=== PATIENT | female | born 2000 | race Two or more races ===

== ENCOUNTER 2021-12-08 10:36 | Outpatient (REF) | payer OTHER, SELFPAY ==
[2021-12-08 18:07] LABS: CT PCR NOT DETECTED (Not Detect.); NG PCR NOT DETECTED (Not Detect.)
== END 2021-12-08 10:37 | disposition home or self-care (01) ==
LOC: HO.LAB 10:36
PROVIDERS: Visit Provider Advanced Practice Midwife
DX: Z01.419 Encounter for gynecological examination (general) (routine) without abnormal findings (principal); Z20.2 Contact with and (suspected) exposure to infections with a predominantly sexual mode of transmission
CPT/HCPCS: 87491; 87591; 88142

== ENCOUNTER 2022-07-07 09:07 | Outpatient (REF) | payer OTHER, SELFPAY ==
[2022-07-07 09:21] LABS: MANUAL DIFF FLAG NO
[2022-07-07 10:42] LABS: Basophils Absolute Auto 0.1 X10*3/uL (0.0-0.2); Basophils Percent Auto 1.2 % (0-2); Eosinophils Absolute Auto 0.3 X10*3/uL (0.0-0.4); Eosinophils Percent Auto 3.3 % (0-4); Hematocrit 38.8 % (37.0-47.0); Hemoglobin 12.8 g/dl (12.0-16.0); Imm Gran Abs Auto 0.02 X10*3/uL (0.00-0.03); Imm Gran Pct Auto 0.2 % (0.0-0.4); Lymphocytes Absolute Auto 2.1 X10*3/uL (1.2-4.9); Lymphocytes Percent Auto 25.3 % (20-40); Mean Corpuscular Hemoglobin 28.3 pg (27.0-33.0); Mean Corpuscular Volume 85.8 fL (80.0-98.0); Mean Platelet Volume 10.3 fL (9.4-12.3); Monocytes Absolute Auto 0.9 X10*3/uL (0.1-1.2); Monocytes Percent Auto 11.4 % (2-11); Neutrophils Absolute Auto 4.8 x10*3/uL (2.0-8.3); Neutrophils Percent Auto 58.6 % (45-73); Platelet Count 227 X10*3/uL (160-400); Red Blood Count 4.52 X10*6/uL (4.20-5.50); Red Cell Distribution Width 12.4 % (11.0-16.0); White Blood Count 8.2 X10*3/uL (4.8-10.8)
[2022-07-07 11:20] LABS: Alanine Aminotransferase 15 U/L (0-31); Albumin Level 4.4 g/dL (3.5-5.0); Alkaline Phosphatase 46 U/L (39-117); Anion Gap 14 (12-20); Aspartate Amino Transferase 19 U/L (5-31); Bilirubin Total 0.8 mg/dL (0.0-1.0); Blood Urea Nitrogen 10 mg/dL (9-16); Calcium 9.3 mg/dL (8.4-10.2); Carbon Dioxide 26 mmol/L (22-29); Chloride 106 mmol/L (96-108); Estimated Glomerular Filt Rate > 60; Glucose Random 74 mg/dL (60-115); Potassium 4.3 mmol/L (3.3-5.1); Sodium 142 mmol/L (135-145); Total Protein 7.4 g/dL (6.5-8.0)
[2022-07-07 11:38] LABS: TSH reflex Free T4 0.83 uIU/mL (0.32-4.0); Vitamin B12 716 pg/mL (200-900); Vitamin D 25-OH Total 25.6 ng/mL (>30)
[2022-07-07 13:00] LABS: Folate 14.5 ng/mL (> or = 4.0)
== END 2022-07-07 09:08 | disposition home or self-care (01) ==
LOC: HO.LAB 09:07
PROVIDERS: PCP Nurse Practitioner Family; Visit Provider Nurse Practitioner Family
DX: Z00.00 Encounter for general adult medical examination without abnormal findings (principal)
CPT/HCPCS: 36415; 80053; 82306; 82607; 82746; 84443; 85025

== ENCOUNTER 2022-10-19 15:27 | Outpatient (REF) | payer OTHER, SELFPAY ==
[2022-10-19 16:51] LABS: Vitamin D 25-OH Total 43.8 ng/mL (>30)
== END 2022-10-19 15:28 | disposition home or self-care (01) ==
LOC: HO.LAB 15:27
PROVIDERS: Visit Provider Nurse Practitioner Family
DX: R79.89 Other specified abnormal findings of blood chemistry (principal)
CPT/HCPCS: 36415; 82306

== ENCOUNTER 2023-01-10 09:20 | Outpatient (AMB) | payer OTHER, MEDICAID, SELFPAY ==
--- NOTE | 2023-01-10 09:31 | MHC.OFFVIS ---
Intake Vital Signs 01/10/23 09:33 Height 5 ft 6 in Weight 100 lb 2 oz BMI 16.2 BP 100/62 Intake Visit Reasons: ER follow up Intake Note: The patient agreed to use of a dental assistant medical assistant during this encounter. Scribed for FERNANDO Ruiz by Ade Hurtado dental assistant medical assistant, on 01/10/2023 at 9:48 am EST. 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 Reports pain is not worsening and only hurts when she cough or lift something heavy. Currently sexually active. Does not use BC and does not mind getting . STD testing offered; she declines due to having her menses. [facility] Medical History Encounter to establish care (~07/05/21) History of anxiety Hx of migraine headaches Irregular menses Ovarian cyst Surgical History History of facial surgery History of hernia surgery History of nasal surgery History of wisdom tooth extraction Family History Mother Hernia Father High blood pressure Kidney stone Maternal Grandmother Diabetes mellitus Paternal Grandmother Diabetes mellitus Social History Housing: Apartment Alcohol intake: current Alcohol intake frequency: a few times a month Patient Tobacco Use Status: Never used Tobacco e-Cigarette/Vaping Use: Never Used Second Hand Smoke Exposure: No Substance Use Type: Marijuana Patient : No service: No Current occupational status: employed 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 Sexual orientation: Straight/Heterosexual Gender identity: Female Cognitive needs: No Hearing needs: No Vision needs: Yes (glasses) Female Reproductive History Menstrual Age of Menarche: 13 Duration of menses: 6-7 days Date of last menstrual period: 01/07/23 control method: none Total pregnancies: 0 Number of Living Children: 0 Physical Exam Vital Signs: Last Vital Signs BP 100/62 01/10/23 09:33 BMI result Body Mass Index 16.2 Const General: cooperative, healthy appearing, comfortable, no acute distress, well developed, alert and awake Other: General: Yes bladder normal to palpation External Female Exam: normal external appearance and normal appearance of the urethra Speculum Exam - Vagina: normal appearance of the vagina, normal palpation and normal vaginal discharge Speculum Exam - Cervix: normal appearance of the cervix and normal palpation Bimanual exam- vagina & uterus: normal bimanual exam, normal palpation, bladder normal to palpation and normal palpation Bimanual Exam- Adnexa, other: normal adnexae and no masses Assessment & Plan Assessment & Plan (1) Ovarian cyst: Code(s): N83.209 - Unspecified ovarian cyst, unspecified side Plan: Discussed: Pelvic US ordered; follow up for test results with AG in January. Call sooner if pain increases or go to the ED if pain is severe. All of her questions and concerns were addressed to the best of my ability and shared decision making. She is agreeable to plan of care. AG scheduled. Orders: Orders US pelvic and transvaginal Today N83.209 - Unspecified ovarian cyst, unspecified side Coding Level of Care Code Est Pt Level 3 (30495) Diagnoses Ovarian cyst N83.209
[2023-01-10 09:33] VITALS: BP 100/62; BMI 16.2
== END 2023-01-10 10:21 | disposition home or self-care (01) ==
LOC: HO.HWS 09:20
PROVIDERS: PCP Nurse Practitioner Family; Visit Provider Advanced Practice Midwife
DX: N83.209 Unspecified ovarian cyst, unspecified side (principal)
CPT/HCPCS: 99213

== ENCOUNTER → 2023-01-10 09:20 | Outpatient (BNVA) | payer OTHER, MEDICAID, SELFPAY | PROVIDERS: PCP Nurse Practitioner Family; Visit Provider Advanced Practice Midwife ==

== ENCOUNTER 2023-01-12 14:13 | Outpatient (REF) | payer OTHER, MEDICAID, SELFPAY ==
--- NOTE | ~2023-01-12 | US_ITS ---
EXAMINATION: US PELVIS CLINICAL INFORMATION: Ovarian cyst, last menstrual period 01/07/2023. COMPARISON: None available. TECHNIQUE: Ultrasound of the pelvis is performed using both transabdominal and transvaginal transducers along with Doppler. Transvaginal imaging is performed due to inadequate visualization transabdominally. FINDINGS: Uterus is anteverted and measures 6.6 x 2.8 x 4.7 cm. No discrete fibroids are identified. Endometrial thickness is 0.4 cm. Small anechoic area within the endometrium, possibly representing a cyst versus fluid collection. Patients is currently menstruating. No significant free fluid. Right ovary measures 5.6 x 1.4 x 2.7 cm, volume 7.2 mL. Right ovarian 1.6 x 0.7 x 1.1 cm cyst with septation versus 2 follicles. Left ovary measures 3.9 x 1.3 x 1.7 cm, volume 4.5 mL. Left ovarian 1.0 x 0.8 x 0.9 cm cyst, characteristic of follicle. No significant free fluid. US/US pelvic and transvaginal IMPRESSION: Small anechoic area within the endometrium, possibly representing a cyst versus fluid collection. Patients is currently menstruating. Correlation with clinical exam and possible gynecologic consultation recommended to determine further management. Recommend followup ultrasound in 6-8 weeks.
== END 2023-01-12 14:14 | disposition home or self-care (01) ==
LOC: HO.HMGCX 14:13
PROVIDERS: PCP Nurse Practitioner Family; Visit Provider Advanced Practice Midwife
DX: N83.209 Unspecified ovarian cyst, unspecified side (principal)
CPT/HCPCS: 76830; 76856

== ENCOUNTER 2023-02-08 13:53 | Outpatient (AMB) | payer OTHER, SELFPAY ==
--- NOTE | 2023-02-08 14:04 | A.OFFVIS_ITS ---
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 Scribed for FERNANDO Ruiz by Ade Hurtado medical dermatologist, on 02/08/2023 at 2:14 pm EST. Healthcare Facility Administrator: Healthcare Facility Administrator Present ([place]) Allergies No Known Allergies Allergy (Verified 02/08/23 14:04) Is last menstrual period known: Yes Last menstrual period: 12/07/22 HPI HPI Comments History of Present Illness Details She is a premenopausal woman presenting for annual exam. She admits to eating healthy and tries to stay active with exercise. Currently sexually active. Doesn't use any form of BC and her and her partner are trying to conceive. Reports both her and her partner seen fertility specialist at [facility], was told her eggs are tiny, she received Rx/treatment and stopped taking treatment due to no positive results and at the time living with in laws and needed to take a break. PNV Rx offered; she defers and prefers to buy OTC as they cost less. Regular monthly periods. Reports right sided pelvic pain. Denies vaginal itching and irritation. STD screening offered; she accepts. Denies family hx of breast, colon and ovarian cancer. Last pap smear 12/09/21. Reports she was having her menses during her last US. [facility] Medical History Cyst of uterus Abnormal ultrasound Female infertility Pelvic pain Ovarian cyst Irregular menses History of anxiety Hx of migraine headaches Encounter to establish care (~07/05/21) Surgical History History of wisdom tooth extraction History of hernia surgery History of nasal surgery History of facial surgery Family History Mother Hernia Father High blood pressure Kidney stone Maternal Grandmother Diabetes mellitus Paternal Grandmother Diabetes mellitus Social History Housing: Apartment Alcohol intake: current Alcohol intake frequency: a few times a month Patient Tobacco Use Status: Never used Tobacco e-Cigarette/Vaping Use: Never Used Second Hand Smoke Exposure: No Substance Use Type: Marijuana service: No Current occupational status: employed 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 Sexual orientation: Straight/Heterosexual Gender identity: Female Cognitive needs: No Hearing needs: No Vision needs: Yes (glasses) Female Reproductive History Menstrual Age of Menarche: 13 Date of last menstrual period: 12/07/22 control method: none Total pregnancies: 0 Physical Exam Vital Signs: Last Vital Signs BP 90/56 L 02/08/23 14:06 BMI result Body Mass Index 16.0 Const General: cooperative, healthy appearing, no acute distress, well developed and alert Orientation/consciousness: patient oriented x3 HEENT Head: Yes normal to inspection Eyes General: appearance normal, both eyes and all related structures Neck Neck: Yes normal visual inspection Thyroid: Thyroid normal Chest Chest palpation & inspection: normal inspection of the chest Breast/axilla inspection: normal inspection of the breasts (no puckering, dimpling, peau de orange, retraction, discharge, masses) Breast/axilla palpation: normal palpation of the breasts Resp Effort & Inspection: normal respiratory effort GI Inspection: Yes normal to inspection Palpation (GI): Soft to palpation (to palpation) Rectal Exam - Female: deferred General: Yes bladder normal to inspection External Female Exam: normal external appearance and normal appearance of the urethra Speculum Exam - Vagina: normal appearance of the vagina, normal palpation and normal vaginal discharge Speculum Exam - Cervix: normal appearance of the cervix and normal palpation Bimanual exam- vagina & uterus: normal palpation and normal palpation Bimanual Exam- Adnexa, other: normal adnexae and no masses Skin General skin exam: no rashes or lesions noted Neuro General: patient oriented x3 Cognition (Neuro): normal cognition Extrem General: Yes normal to inspection Psych Attitude: cooperative Thought process: Normal thought process present Results AMB Test Urine AMB Test Urine Negative Last Edit by ROME Torres on 02/08/23 14:14 Results Reviewed Results Reviewed: Laboratory Last Values Tst Clinic Negative 02/08/23 14:13 01/12/23 EXAMINATION: US PELVIS CLINICAL INFORMATION: Ovarian cyst, last menstrual period 01/07/2023. COMPARISON: None available. TECHNIQUE: Ultrasound of the pelvis is performed using both transabdominal and transvaginal transducers along with Doppler. Transvaginal imaging is performed due to inadequate visualization transabdominally. FINDINGS: Uterus is anteverted and measures 6.6 x 2.8 x 4.7 cm. No discrete fibroids are identified. Endometrial thickness is 0.4 cm. Small anechoic area within the endometrium, possibly representing a cyst versus fluid collection. Patients is currently menstruating. No significant free fluid. Right ovary measures 5.6 x 1.4 x 2.7 cm, volume 7.2 mL. Right ovarian 1.6 x 0.7 x 1.1 cm cyst with septation versus 2 follicles. Left ovary measures 3.9 x 1.3 x 1.7 cm, volume 4.5 mL. Left ovarian 1.0 x 0.8 x 0.9 cm cyst, characteristic of follicle. No significant free fluid. US/US pelvic and transvaginal IMPRESSION: Small anechoic area within the endometrium, possibly representing a cyst versus fluid collection. Patients is currently menstruating. Correlation with clinical exam and possible gynecologic consultation recommended to determine further management. Recommend followup ultrasound in 6-8 weeks. Assessment & Plan Assessment & Plan (1) Encounter for well woman exam: Code(s): Z01.419 - Encounter for gynecological examination (general) (routine) without abnormal findings Plan: Discussed: Current recommendations for pap smears per ASCCP guidelines. Breast awareness and periodic self breast exams. Maintaining a healthy lifestyle including a well balanced diet and routine exercise. All of her questions and concerns were addressed to the best of my ability. RTO in one year for AG. (2) Ovarian cyst: Code(s): N83.209 - Unspecified ovarian cyst, unspecified side (3) Pelvic pain: Code(s): R10.2 - Pelvic and perineal pain Plan: Pelvic US ordered. Follow up via tele-visit for results. Monitor periods, report any unscheduled bleeding, bleeding episodes less than 21 days apart or heavy prolonged menstrual bleeding. BV testing and GC/CT panel done today. Await results and treat accordingly. (4) Female infertility: Code(s): N97.9 - Female infertility, unspecified Plan: Contact office if interested in referral to fertility specialist when ready. (5) Uterine cyst: Code(s): N85.8 - Other specified noninflammatory disorders of uterus (6) Abnormal ultrasound: Code(s): R93.89 - Abnormal findings on diagnostic imaging of other specified body structures Orders: Orders CT NG by PCR Today Z20.2 - Contact with and (suspected) exposure to infections with a predominantly sexual mode of transmission AMB HCG Urine Test Today Z32.02 - Encounter for test, result negative US pelvic and transvaginal Today N85.8 - Other specified noninflammatory disorders of uterus Coding Level of Care Code Est Pt Prev Care 18-39y(84834) Diagnoses Encounter for well woman exam Z01.419 Ovarian cyst N83.209 Pelvic pain R10.2 Female infertility N97.9 Uterine cyst N85.8 Abnormal ultrasound R93.89
[2023-02-08 14:06] VITALS: BP 90/56; BMI 16.0
== END 2023-02-08 14:32 | disposition home or self-care (01) ==
PROVIDERS: PCP Nurse Practitioner Family; Visit Provider Advanced Practice Midwife
DX: Z01.419 Encounter for gynecological examination (general) (routine) without abnormal findings (principal); N83.209 Unspecified ovarian cyst, unspecified side; R10.2 Pelvic and perineal pain; N97.9 Female infertility, unspecified; N85.8 Other specified noninflammatory disorders of uterus; R93.89 Abnormal findings on diagnostic imaging of other specified body structures; Z32.02 Encounter for pregnancy test, result negative
CPT/HCPCS: 99395

== ENCOUNTER 2023-02-08 13:53 | Outpatient (REF) | payer OTHER, SELFPAY ==
[2023-02-09 09:52] LABS: CT PCR NOT DETECTED (Not Detect.); NG PCR NOT DETECTED (Not Detect.)
== END 2023-02-08 13:54 | disposition home or self-care (01) ==
LOC: HO.LNP 13:53
PROVIDERS: PCP Nurse Practitioner Family; Visit Provider Advanced Practice Midwife
DX: Z01.419 Encounter for gynecological examination (general) (routine) without abnormal findings (principal); N83.209 Unspecified ovarian cyst, unspecified side; R10.2 Pelvic and perineal pain; N97.9 Female infertility, unspecified; N85.8 Other specified noninflammatory disorders of uterus; R93.89 Abnormal findings on diagnostic imaging of other specified body structures; Z20.2 Contact with and (suspected) exposure to infections with a predominantly sexual mode of transmission
CPT/HCPCS: 0353U; 81025

== ENCOUNTER 2023-02-28 10:48 | Outpatient (REF) | payer OTHER, SELFPAY | END 2023-02-28 10:49 | disposition home or self-care (01) | LOC: HO.US 10:48 | PROVIDERS: PCP Nurse Practitioner Family; Visit Provider Advanced Practice Midwife | DX: N85.8 Other specified noninflammatory disorders of uterus (principal) | CPT/HCPCS: 76830; 76856 ==

== ENCOUNTER 2023-03-14 12:12 | Outpatient (AMB) | payer OTHER, SELFPAY ==
--- NOTE | 2023-03-14 12:13 | MHC.OFFVIS ---
Intake Intake Visit Reasons: TV Ultra sound follow up Intake Note: The patient agreed to use of a medical services assistant during this encounter. Scribed for FERNANDO Ruiz by Ade Hurtado medical services assistant, on 03/14/2023 at 12:56 pm EST. Commercial Lines Account Manager Required: No Allergies No Known Allergies Allergy (Verified 03/14/23 12:13) Is last menstrual period known: Yes Last menstrual period: 02/13/23 Post menopausal: No Patient : No HPI HPI Comments History of Present Illness Details Telehealth visit 12:56 pm -1:0 pm. Phone Call due to Covid-19 Pandemic. She presents via phone to discuss US results regarding: Small anechoic area within the endometrium, possibly representing a cyst versus fluid collection. Patients is currently menstruating. Reports LMP was 02/22/23 and is waiting for her menses for this month but is experiencing symptoms. Currently sexually active; UPI. Feels well, not having any pain. Reports they are not trying but they are not preventing. Reports her and her partner has seen infertility specialist, used Clomid, was told her eggs are small. She took a break from infertility assistance emotionally difficult to continue. FOR[facility]LY [facility] Medical History (Updated 03/14/23 @ 13:05 by Ade Hurtado) Nabothian cyst Cyst of uterus Abnormal ultrasound Female infertility Pelvic pain Ovarian cyst Irregular menses History of anxiety Hx of migraine headaches Encounter to establish care (~07/05/21) Surgical History History of wisdom tooth extraction History of hernia surgery History of nasal surgery History of facial surgery Family History Mother Hernia Father High blood pressure Kidney stone Maternal Grandmother Diabetes mellitus Paternal Grandmother Diabetes mellitus Social History Housing: Apartment Alcohol intake: current Alcohol intake frequency: a few times a month Patient Tobacco Use Status: Never used Tobacco e-Cigarette/Vaping Use: Never Used Second Hand Smoke Exposure: No Substance Use Type: Marijuana Patient : No service: No Current occupational status: employed 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 COMPARISON: Pelvic ultrasound dated 01/12/2023. TECHNIQUE: Ultrasound of the pelvis is performed using both transabdominal and transvaginal transducers along with Doppler. Transvaginal imaging is performed due to inadequate visualization transabdominally. FINDINGS: Uterus: The uterus is anteverted and anteflexed. The uterus measures 6.6 x 2.8 x 4.5 cm. A Nabothian cyst is seen within the cervix. The double wall endometrial thickness is 0.7 mm. The uterus is smooth in contour and has normal myometrial echogenicity. No visible fibroid. Adnexa: Both ovaries are visualized. There is normal color flow to the adnexa. There is no ovarian torsion. There is no pelvic ascites or fluid collection. Right ovary measures 3.7 x 1.6 x 2.0 cm. There are small benign, simple physiologic follicles. Left ovary measures 4.1 x 2.2 x 1.7 cm. A benign, simple, dominant follicle is seen of maximal diameter 1.7 cm. This requires no imaging follow-up. There are further smaller benign, simple physiologic follicles. US/US pelvic and transvaginal IMPRESSION: 1. The previously identified endometrial fluid collection is not clearly redemonstrated. Endometrial stripe thickness is normal for a premenopausal patient. 2. A nabothian cyst is seen within the cervix. 3. There are benign, simple bilateral ovarian follicles, which require no imaging follow-up. Assessment & Plan Assessment & Plan (1) Encounter to discuss test results: Code(s): Z71.2 - Person consulting for explanation of examination or test findings Plan: Discussed: US findings: 1. The previously identified endometrial fluid collection is not clearly redemonstrated. Endometrial stripe thickness is normal for a premenopausal patient. 2. A nabothian cyst is seen within the cervix. 3. There are benign, simple bilateral ovarian follicles, which require no imaging follow-up. Monitor menses. If experience pain or prolonged menses, cycles <21d, >2-3months contact office. All of her questions and concerns were addressed to the best of my ability and shared decision making. She is agreeable to plan of care. RTO for AG. (2) Female infertility: Code(s): N97.9 - Female infertility, unspecified Plan: Release of records from ED specialist at [facility]. (3) Nabothian cyst: Code(s): N88.8 - Other specified noninflammatory disorders of cervix uteri Telehealth Telehealth Location of provider rendering services: practice address Location of patient: other (work) Patient Identification confirmed using: Name, : Yes Telehealth method: video Patient verbally consented to treatment: Yes Patient verbally consented to billing insurance company: Yes Patient informed of any privacy concerns related to visit: Yes Coding Level of Care Code Tele Est Pt Level 3 (46886) Diagnoses Encounter to discuss test results Z71.2 Female infertility N97.9 Nabothian cyst N88.8
== END 2023-03-14 13:22 | disposition home or self-care (01) ==
LOC: HO.HWS 12:12
PROVIDERS: PCP Nurse Practitioner Family; Visit Provider Advanced Practice Midwife
DX: Z71.2 Person consulting for explanation of examination or test findings (principal); N97.9 Female infertility, unspecified; N88.8 Other specified noninflammatory disorders of cervix uteri
CPT/HCPCS: 99213

== ENCOUNTER → 2023-03-14 12:12 | Outpatient (BNVA) | payer OTHER, SELFPAY | PROVIDERS: PCP Nurse Practitioner Family; Visit Provider Advanced Practice Midwife ==

== ENCOUNTER 2023-03-27 10:02 | Outpatient (REF) | payer OTHER, SELFPAY ==
[2023-03-27 13:54] LABS: HCG Quantitative 639 mIU/mL
== END 2023-03-27 10:03 | disposition home or self-care (01) ==
LOC: HO.HMGCLDS 10:02
PROVIDERS: PCP Nurse Practitioner Family; Visit Provider Physician Assistant Medical
DX: Z34.90 Encounter for supervision of normal pregnancy, unspecified, unspecified trimester (principal)
CPT/HCPCS: 36415; 84702

== ENCOUNTER 2023-09-26 15:04 | Outpatient (REF) | payer BC, SELFPAY | END 2023-09-26 15:05 | disposition home or self-care (01) | LOC: HO.LAB 15:04 | PROVIDERS: PCP Internal Medicine; Visit Provider Advanced Practice Midwife | DX: N93.9 Abnormal uterine and vaginal bleeding, unspecified (principal); Z32.02 Encounter for pregnancy test, result negative | CPT/HCPCS: 81025 ==

== ENCOUNTER 2023-09-26 15:04 | Outpatient (AMB) | payer BC, SELFPAY ==
--- NOTE | 2023-09-26 15:44 | A.OFFVIS_ITS ---
Vital Signs 09/26/23 15:46 Height 5 ft 6 in BP 110/70 Intake Visit Reasons: AUB Intake Note: pt c/o bleeding 2x month since miscarriage in Mar Dipper And Baker: Dipper And Baker Present ([place]) Allergies No Known Allergies Allergy (Verified 09/26/23 15:44) Is last menstrual period known: Yes (spotting 09/20 to 09/24) Last menstrual period: 09/05/23 HPI Comments Details: Patient is here with concerns over her menstrual cycle pattern bleeding on and off every couple of weeks for 5 months. She has had a few ultrasounds in 2022, one appeared as if it may have been questionable polyp and then the subsequent follow-up did not reveal any abnormal findings, and then she was which ended in a miscarriage in March new partner since April, she currently is open to becoming and prefers not to be on control. Unprotected intimacy on 09/16/2023. Urine test is negative today. [facility] Medical History Nabothian cyst Cyst of uterus Abnormal ultrasound Female infertility Pelvic pain Ovarian cyst Irregular menses History of anxiety Hx of migraine headaches Encounter to establish care (~07/05/21) Surgical History History of wisdom tooth extraction History of hernia surgery History of nasal surgery History of facial surgery Family History Mother Hernia Father High blood pressure Kidney stone Maternal Grandmother Diabetes mellitus Paternal Grandmother Diabetes mellitus Social History Housing: Apartment Alcohol intake: current Alcohol intake frequency: a few times a month Patient Tobacco Use Status: Never used Tobacco e-Cigarette/Vaping Use: Never Used Second Hand Smoke Exposure: No Substance Use Type: Marijuana service: No Current occupational status: employed 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 Sexual orientation: Straight/Heterosexual Gender identity: Female Cognitive needs: No Hearing needs: No Vision needs: Yes (glasses) Female Reproductive History Menstrual Age of Menarche: 13 Duration of menses: 3-5 days Date of last menstrual period: 09/05/23 Total pregnancies: 1 Ab spontaneous: 1 Review of Systems Const All systems reviewed & are unremarkable except as noted in HPI and below Physical Exam Vital Signs: Last Vital Signs BP 110/70 09/26/23 15:46 Const General: cooperative, healthy appearing and no acute distress Orientation/consciousness: patient oriented x3 GI Inspection: Yes normal to inspection Palpation (GI): Soft to palpation and Other GI palpation findings present (Nontender) Rectal Exam - Female: visual inspection normal General: Yes bladder normal to palpation External Female Exam: normal appearance of the urethra Speculum Exam - Vagina: normal appearance of the vagina, normal palpation and normal vaginal discharge Speculum Exam - Cervix: normal appearance of the cervix, normal palpation and Other cervical findings present (Hyperpigmented patch at the 6 o'clock position) Bimanual exam- vagina & uterus: normal bimanual exam, normal palpation, uterine size normal, bladder normal to palpation, normal palpation, uterine shape normal and non-tender Bimanual Exam- Adnexa, other: normal adnexae Neuro General: patient oriented x3 Results AMB Test Urine AMB Test Urine Negative Last Edit by ROME Torres on 06/20 15:51 Results Reviewed Results Reviewed: Laboratory Last Values Tst Clinic Negative 09/26/23 15:50 Assessment & Plan Assessment & Plan (1) Abnormal uterine bleeding (AUB): Code(s): N93.9 - Abnormal uterine and vaginal bleeding, unspecified Plan Discuss workup for abnormal uterine bleeding to include EMB in ECC. Lab work. Discussed pre-procedure medication such as ibuprofen 3 tablets to take with food and fluids. Advised no unprotected intimacy and to use condoms consistently. test is negative today. Pap screen done today, and cervical cultures. Return to the office for the procedure. All of her questions and concerns were addressed to the best of my ability and shared decision making. She is agreeable to the plan of care. This note is constructed using voice recognition software. While every effort has been made to ensure accuracy, data base administrator errors may have been included. Orders: Orders Testosterone, Free/Total Today N93.9 - Abnormal uterine and vaginal bleeding, unspecified Complete Blood Count no Diff Today N93.9 - Abnormal uterine and vaginal bleeding, unspecified Bacterial Vaginosis Panel Today N93.9 - Abnormal uterine and vaginal bleeding, unspecified CT NG by PCR Today N93.9 - Abnormal uterine and vaginal bleeding, unspecified Pap Smear Today N93.9 - Abnormal uterine and vaginal bleeding, unspecified AMB HCG Urine Test Today Z32.02 - Encounter for test, result negative Coding Level of Care Code Est Pt Level 4 (36207) Diagnoses Abnormal uterine bleeding (AUB) N93.9
[2023-09-26 15:46] VITALS: BP 110/70
== END 2023-09-26 16:10 | disposition home or self-care (01) ==
PROVIDERS: PCP Internal Medicine; Visit Provider Advanced Practice Midwife
DX: Z32.02 Encounter for pregnancy test, result negative (principal); N93.9 Abnormal uterine and vaginal bleeding, unspecified
CPT/HCPCS: 99214

== ENCOUNTER 2023-09-26 16:04 | Outpatient (REF) | payer BC, SELFPAY | END 2023-09-26 16:05 | disposition home or self-care (01) | LOC: HO.LNP 16:04 | PROVIDERS: Visit Provider Advanced Practice Midwife | DX: N93.9 Abnormal uterine and vaginal bleeding, unspecified (principal) | CPT/HCPCS: 88142 ==

== ENCOUNTER 2023-09-26 16:15 | Outpatient (REF) | payer BC, SELFPAY ==
[2023-09-26 17:29] LABS: Hematocrit 39.6 % (37.0-47.0); Hemoglobin 13.1 g/dl (12.0-16.0); Mean Corpuscular HGB Conc 33.1 g/dl (31.0-35.0); Mean Corpuscular Hemoglobin 27.7 pg (27.0-33.0); Mean Corpuscular Volume 83.7 fL (80.0-98.0); Platelet Count 235 X10*3/uL (160-400); Red Blood Count 4.73 X10*6/uL (4.20-5.50); Red Cell Distribution Width 12.7 % (11.0-16.0); White Blood Count 8.3 X10*3/uL (4.8-10.8)
[2023-09-26 18:29] LABS: CT PCR NOT DETECTED (Not Detect.); NG PCR NOT DETECTED (Not Detect.)
[2023-09-27 13:16] LABS: BV Int Neg Control Negative (Negative); BV Int Pos Control Positive (Positive)
[2023-09-30 17:29] LABS: Testosterone, Free 3.2 pg/mL (0.1-6.4); Testosterone, Total 18 ng/dL (2-45)
== END 2023-09-26 16:16 | disposition home or self-care (01) ==
LOC: HO.LAB 16:15
PROVIDERS: Visit Provider Advanced Practice Midwife
DX: N93.9 Abnormal uterine and vaginal bleeding, unspecified (principal)
CPT/HCPCS: 0353U; 84402; 84403; 85027; 87480; 87510; 87660

== ENCOUNTER 2023-10-17 11:28 | Outpatient (AMB) | payer BC, SELFPAY ==
--- NOTE | 2023-10-17 11:33 | MHC.PC.OV ---
Vital Signs 10/17/23 11:35 Height 5 ft 6 in Weight 116 lb 2 oz BMI 18.7 BP 130/70 Blood Pressure Location Lt brachial Position Sitting Pulse 82 Pulse Source Pulse Oximeter Pulse Oximetry (%) 97 Oxygen Delivery Method Room Air Intake Visit Reasons: Transfer of care/PE Intake Note: Patient is here today for a physical and SALLIE from . 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: No News Content Specialist: Not Required per policy Accompanied by: Self / Same As Patient Allergies No Known Allergies Allergy (Verified 10/30/23 16:04) Medication List - Last Reconciled 10/17/23 by Jorge Luis Velasco MD meloxicam 15 mg PO DAILY pantoprazole 40 mg PO DAILY Tobacco use date assessed: 10/17/23 Dental Screening Dental Screen Date: 10/17/23 Did you have a dental visit in the last 12 months?: Yes Did you have a dental problem in the last 6 months where you did not have access to dental care?: No Was dental information given to patient?: Patient has dentist HPI Transfer of care/PE HPI Details 22-year-old female presents to the office to discuss her medical conditions. I am taking over her care as her previous provider has left the practice. Patient has history of migraines and was on preventive medication for many years. She stopped taking the medication few years ago. Patient reports that she has been having migraines, at least 3 to 4 times a week. No specific triggers. Headaches are relieved by sitting in a dark room or by sleeping. [id number] nonsteroidals help. Patient is also complaining of reflux disease. Continues to burp and passed gas. Occasionally she has bitter+ fluid coming into the mouth. FORMERLY [facility], [facility]1983 Medical History Nabothian cyst Cyst of uterus Abnormal ultrasound Female infertility Pelvic pain Ovarian cyst Irregular menses History of anxiety Hx of migraine headaches Encounter to establish care (~07/05/21) Surgical History History of wisdom tooth extraction History of hernia surgery History of nasal surgery History of facial surgery Family History Mother Hernia Father High blood pressure Kidney stone Maternal Grandmother Diabetes mellitus Paternal Grandmother Diabetes mellitus Social History Housing: Apartment Alcohol intake: current Alcohol intake frequency: a few times a month Patient Tobacco Use Status: Never used Tobacco e-Cigarette/Vaping Use: Never Used Second Hand Smoke Exposure: No Substance Use Type: Marijuana service: No Current occupational status: employed 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 1. Little interest or pleasure in doing things: not at all 2. Feeling down, depressed, or hopeless: not at all 3. Trouble falling or staying asleep, or sleeping too much: not at all 4. Feeling tired or having little energy: not at all 5. Poor appetite or overeating: not at all 6. Feeling bad about yourself - or that you are a failure or have let yourself or your family down: not at all 7. Trouble concentrating on things, such as reading the newspaper or watching television: not at all 8. Moving or speaking so slowly that other people could have noticed. Or the opposite - being so fidgety or restless that you have been moving around a lot more than usual: not at all 9. Thoughts that you would be better off or of hurting yourself in some way: not at all Total score: 0 Depression Screening Interpretation: Negative Depression Screening Done: Yes Source: Developed by Drs. Saran Pepper, Karuna Vogel, Mitchell Obrien and colleagues, with an educational mirela from [employer]. Thrive Questionnaire Date Thrive assessed: 10/17/23 I am a: Patient What is your living situation today?: I have a steady place to live Within the past 12 months, did the food you bought not last and you didn't have the money to get more?: Never true Within the past 12 months, did you worry whether your food would run out before you got money to buy more?: Never true Do you have trouble paying for medicines?: No Do you have trouble getting transportation to medical appointments?: No Do you have trouble paying your heating and electricity bill?: No Do you have trouble taking care of your child, family member or friend?: No Do you have trouble with day-to-day activities such as bathing, preparing meals, shopping, managing finances, etc.?: No Are you currently unemployed and looking for a job?: No Are you interested in more education?: No Currently or been in a relationship where the following occur: no concerns reported THRIVE Score: 0 AUDIT C Alcohol Use Questionnaire (AUDIT-C) 1. How often do you have a drink containing alcohol?: Monthly or less 2. How many drinks containing alcohol do you have on a typical day when you are drinking?: 1 or 2 Total Score: 1 BI-7 AMB Questionnaire BI-7 Date BI - 7 assessed: 10/17/23 Feeling nervous, anxious, or on edge: 3 = Nearly every day Not being able to stop or control worryin = Nearly every day Worrying too much about different things: 3 = Nearly every day Trouble relaxin = Nearly every day Being so restless that it is hard to sit still: 3 = Nearly every day Becoming easily annoyed or irritable: 3 = Nearly every day Feeling afraid as if something awful might happen: 3 = Nearly every day Total BI-7 score (0-4 normal; 5-9 mild; 10-14 moderate; 15-21 severe): 21 Source: Developed by Drs. Saran Pepper, Karuna Vogel, Mitchell Obrien and colleagues, with an educational mirela from [employer]. Physical exam (Primary Care) Vital Signs: Last Vital Signs Pulse 82 10/17/23 11:35 BP 130/70 10/17/23 11:35 Pulse Ox 97 10/17/23 11:35 Oxygen Delivery Method Room Air 10/17/23 11:35 BMI result Body Mass Index 18.7 Tobacco/Smoking Status: Tobacco use Status Tobacco use date assessed 10/17/23 10/17/23 11:40 Patient Tobacco Use Status Never used Tobacco 10/17/23 11:40 e-Cigarette/Vaping Use Never Used 10/17/23 11:40 PHQ-9: PHQ-9 Score PHQ-9: Total score 0 10/17/23 12:14 Depression Screening Interpretation: Negative Thrive Assessment: Date of Thrive Assessment Date Thrive assessed 10/17/23 10/17/23 11:40 Currently or been in a relationship where the following occur: no concerns reported Const General: cooperative and healthy appearing Nutritional Appearance: well nourished Orientation/consciousness: patient oriented x3 Limitations: no limitations HENMT Head: Yes normal to inspection Eyes General: appearance normal, both eyes and all related structures Neck Neck: Yes normal visual inspection Chest Chest palpation & inspection: normal palpation of entire chest wall Resp Effort & Inspection: normal respiratory effort Neuro General: patient oriented x3 Assessment and Plan Assessment & Plan (1) Anxiety: Code(s): F41.9 - Anxiety disorder, unspecified (2) Migraine without aura: Code(s): G43.009 - Migraine without aura, not intractable, without status migrainosus Plan: Intermittent use of meloxicam. Ppi ordered. Orders: Orders Basic Metabolic Panel 10/17/23 F41.9 - Anxiety disorder, unspecified, G43.009 - Migraine without aura, not intractable, without status migrainosus Thyroid Stimulating Hormone 10/17/23 F41.9 - Anxiety disorder, unspecified, G43.009 - Migraine without aura, not intractable, without status migrainosus UA and rflx microscopic 10/17/23 F41.9 - Anxiety disorder, unspecified, G43.009 - Migraine without aura, not intractable, without status migrainosus Lipid Panel 10/17/23 F41.9 - Anxiety disorder, unspecified, G43.009 - Migraine without aura, not intractable, without status migrainosus Liver Panel 10/17/23 F41.9 - Anxiety disorder, unspecified, G43.009 - Migraine without aura, not intractable, without status migrainosus Complete Blood Count no Diff 10/17/23 F41.9 - Anxiety disorder, unspecified, G43.009 - Migraine without aura, not intractable, without status migrainosus Medications: New pantoprazole 40 mg PO DAILY 90 tabs 1RF meloxicam 15 mg PO DAILY 14 tabs 0RF Coding Level of Care Code Est Pt Level 4 (63332) Diagnoses Anxiety F41.9 Migraine without aura G43.009
[2023-10-17 11:35] VITALS: BP 130/70; PULSE 82; O2SAT 97; BMI 18.7
== END 2023-10-17 12:04 | disposition home or self-care (01) ==
PROVIDERS: PCP Nurse Practitioner Family; Visit Provider Internal Medicine
DX: F41.9 Anxiety disorder, unspecified (principal); G43.009 Migraine without aura, not intractable, without status migrainosus
CPT/HCPCS: 99214

== ENCOUNTER 2023-10-17 12:10 | Outpatient (REF) | payer BC, SELFPAY ==
[2023-10-17 12:33] LABS: Appearance Urine Clear; Color Urine Yellow; Glucose Urine UA Negative (Negative); Leukocyte Esterase Urine Negative (Negative); Nitrite Urine Negative (Negative); PH 5.5 (5.0-9.0); Specific Gravity - Urine 1.025 (1.005-1.025); Urine Blood Negative (Negative); Urine Ketones Negative (Negative); Urine Protein Negative (Neg-Trace)
[2023-10-17 12:33] LABS: Hematocrit 38.6 % (37.0-47.0); Hemoglobin 12.9 g/dl (12.0-16.0); Mean Corpuscular HGB Conc 33.4 g/dl (31.0-35.0); Mean Corpuscular Volume 83.9 fL (80.0-98.0); Mean Platelet Volume 9.7 fL (9.4-12.3); Platelet Count 233 X10*3/uL (160-400); Red Cell Distribution Width 12.6 % (11.0-16.0); White Blood Count 6.9 X10*3/uL (4.8-10.8)
[2023-10-17 13:08] LABS: Alanine Aminotransferase 14 U/L (0-31); Albumin Level 4.2 g/dL (3.5-5.0); Alkaline Phosphatase 47 U/L (39-117); Anion Gap 11 (12-20); Aspartate Amino Transferase 17 U/L (5-31); Bilirubin Direct 0.2 mg/dL (0.0-0.5); Bilirubin Total 0.7 mg/dL (0.0-1.0); Blood Urea Nitrogen 17 mg/dL (9-16); Carbon Dioxide 26 mmol/L (22-29); Chloride 107 mmol/L (96-108); Cholesterol 147 mg/dL (<200); Estimated Glomerular Filt Rate > 60; Glucose Random 86 mg/dL (60-115); HDL Cholesterol 52 mg/dL (>40); LDL Cholesterol Calculated 79 mg/dL (<100); Potassium 4.1 mmol/L (3.3-5.1); Sodium 140 mmol/L (135-145); Total Protein 7.1 g/dL (6.5-8.0); Triglycerides 83 mg/dL (<150)
[2023-10-17 13:24] LABS: Thyroid Stimulating Hormone 1.35 uIU/mL (0.32-4.0)
== END 2023-10-17 12:11 | disposition home or self-care (01) ==
LOC: HO.LAB 12:10
PROVIDERS: PCP Internal Medicine; Visit Provider Internal Medicine
DX: F41.9 Anxiety disorder, unspecified (principal); G43.009 Migraine without aura, not intractable, without status migrainosus
CPT/HCPCS: 36415; 80048; 80061; 80076; 81003; 84443; 85027

== ENCOUNTER 2023-10-30 08:33 | Outpatient (REF) | payer BC, SELFPAY ==
[2023-10-30 11:48] LABS: HCG Quantitative < 2 mIU/mL
== END 2023-10-30 08:34 | disposition home or self-care (01) ==
LOC: HO.LAB 08:33
PROVIDERS: PCP Internal Medicine; Visit Provider Advanced Practice Midwife
DX: N93.9 Abnormal uterine and vaginal bleeding, unspecified (principal); L70.9 Acne, unspecified; N92.6 Irregular menstruation, unspecified; Z32.02 Encounter for pregnancy test, result negative
CPT/HCPCS: 36415; 81025; 83498; 84702

== ENCOUNTER 2023-10-30 08:33 | Outpatient (AMB) | payer BC, SELFPAY ==
--- NOTE | 2023-10-30 08:51 | A.OFFVIS_ITS ---
Vital Signs 10/30/23 08:52 Height 5 ft 6 in Weight 118 lb BMI 19.0 BP 100/64 Intake Visit Reasons: EMB Window Cutter Required: No Information Interpreted: non-clinical & clinical Turret Lathe Operator: Turret Lathe Operator Present (Cesar) Allergies No Known Allergies Allergy (Verified 10/30/23 08:53) Is last menstrual period known: Yes Last menstrual period: 10/25/23 Post menopausal: No Patient : No HPI Comments Details: Patient is here today for a follow up on her AUB. She reports she is continuing to have irregular bleeding and had a recent faint home test. History of facial acne and irregular cycles. She was hoping for a future . Denies any risk to see PEs other than history of migraines with aura. COUNTS INCLUDE 234 BEDS AT THE [facility] Medical History Nabothian cyst Cyst of uterus Abnormal ultrasound Female infertility Pelvic pain Ovarian cyst Irregular menses History of anxiety Hx of migraine headaches Encounter to establish care (~07/05/21) Surgical History History of wisdom tooth extraction History of hernia surgery History of nasal surgery History of facial surgery Family History Mother Hernia Father High blood pressure Kidney stone Maternal Grandmother Diabetes mellitus Paternal Grandmother Diabetes mellitus Social History Housing: Apartment Alcohol intake: current Alcohol intake frequency: a few times a month Patient Tobacco Use Status: Never used Tobacco e-Cigarette/Vaping Use: Never Used Second Hand Smoke Exposure: No Substance Use Type: Marijuana service: No Current occupational status: employed 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 Sexual orientation: Straight/Heterosexual Gender identity: Female Cognitive needs: No Hearing needs: No Vision needs: Yes (glasses) Female Reproductive History Menstrual Age of Menarche: 13 Date of last menstrual period: 10/25/23 control method: none Date of last pap smear: 10/01/23 (negative) Review of Systems Const All systems reviewed & are unremarkable except as noted in HPI and below Endo Reports no additional complaints Physical Exam Vital Signs: Last Vital Signs BP 100/64 10/30/23 08:52 BMI result Body Mass Index 19.0 Const General: cooperative, healthy appearing and no acute distress Psych Appearance: well kempt Attitude: cooperative Thought process: Normal thought process present Results AMB Test Urine AMB Test Urine Negative Last Edit by ROME Anderson on 10/30/23 08:54 Results Reviewed Results Reviewed: Laboratory Last Values [facility]st Clinic Negative 10/30/23 08:54 Assessment & Plan Assessment & Plan (1) Abnormal uterine bleeding: Code(s): N93.9 - Abnormal uterine and vaginal bleeding, unspecified Plan Plan beta HCG, 17 hydroxy progesterone. Await HCG results before initiating control Rx to pharmacy. Counseled regarding starting progesterone only pills due to migraines with aura. control hormone use warnings: go to ER if and loss of vision, blindness, severe headache, chest pain or difficulty breathing, severe abdominal pain, or any pain or swelling in an extremity. Follow up pending test results for plan of care. Continuous progesterone or intermittent use trial. All of her questions and concerns were addressed to the best of my ability and shared decision making. She is agreeable to the plan of care. This note is constructed using voice recognition software. While every effort has been made to ensure accuracy, furniture upholstery mechanic errors may have been included. Orders: Orders HCG Quantitative Today N93.9 - Abnormal uterine and vaginal bleeding, unspecified AMB HCG Urine Test Today Z32.02 - Encounter for test, result negative 17 Hydroxyprogesterone Today L70.9 - Acne, unspecified, N92.6 - Irregular menstruation, unspecified Medications: New norethindrone (contraceptive) (Aditi) 0.35 mg PO DAILY 90 days 90 tabs 0RF Coding Level of Care Code Est Pt Level 3 (46550) Diagnoses Abnormal uterine bleeding N93.9
[2023-10-30 08:52] VITALS: BP 100/64; BMI 19.0
== END 2023-10-30 09:21 | disposition home or self-care (01) ==
LOC: HO.HWS 08:33
PROVIDERS: PCP Internal Medicine; Visit Provider Advanced Practice Midwife
DX: N93.9 Abnormal uterine and vaginal bleeding, unspecified (principal); Z32.02 Encounter for pregnancy test, result negative
CPT/HCPCS: 99213

== ENCOUNTER 2023-12-12 11:01 | Outpatient (AMB) | payer BC, SELFPAY ==
--- NOTE | 2023-12-12 11:19 | MHC.PC.OV ---
Vital Signs 12/12/23 11:21 Height 5 ft 6 in Weight 115 lb 8 oz BMI 18.6 BP 110/70 Blood Pressure Location Lt brachial Position Sitting Pulse 82 Pulse Source Pulse Oximeter Pulse Oximetry (%) 95 Oxygen Delivery Method Room Air Intake Visit Reasons: 6wks f\u Intake Note: Patient is here to follow up on Anxiety, Migraines. 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: Not Required per policy Accompanied by: Self / Same As Patient Allergies No Known Allergies Allergy (Verified 12/12/23 12:54) Medication List - Last Reconciled 12/12/23 by Jorge Luis Velasco MD norethindrone (contraceptive) (Aditi) 0.35 mg PO DAILY 90 days pantoprazole 40 mg PO DAILY sumatriptan succinate take 1 tab at onset of headache; if no relief may repeat 1 tab after at least 2 hrs; max = 4 tabs/24 hr PO Tobacco use date assessed: 12/12/23 Dental Screening Dental Screen Date: 10/17/23 HPI 6wks f\u HPI Details 23-year-old female returns to the office for a follow-up on her migraine headaches. Patient reports that the meloxicam prescribed in the last office visit has not help much with her headaches. Patient still gets 1-2 episodes of migraines in a week. 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 Pantoprazole has been working well for her GI symptoms. She is compliant with the other medications. [facility] Medical History Nabothian cyst Cyst of uterus Abnormal ultrasound Female infertility Pelvic pain Ovarian cyst Irregular menses History of anxiety Hx of migraine headaches Encounter to establish care (~07/05/21) Surgical History History of wisdom tooth extraction History of hernia surgery History of nasal surgery History of facial surgery Family History Mother Hernia Father High blood pressure Kidney stone Maternal Grandmother Diabetes mellitus Paternal Grandmother Diabetes mellitus Social History Housing: Apartment Alcohol intake: current Alcohol intake frequency: a few times a month Patient Tobacco Use Status: Never used Tobacco e-Cigarette/Vaping Use: Never Used Second Hand Smoke Exposure: No Substance Use Type: Marijuana service: No Current occupational status: employed Current occupation: [employer] Sexual orientation: Straight/Heterosexual Gender identity: Female Cognitive needs: No Hearing needs: No Vision needs: Yes (glasses) Female Reproductive History Menstrual Age of Menarche: 13 Questionnaire Thrive Questionnaire Date Thrive assessed: 10/17/23 BI-7 AMB Questionnaire BI-7 Date BI - 7 assessed: 10/17/23 Feeling nervous, anxious, or on edge: 3 = Nearly every day Not being able to stop or control worryin = Nearly every day Worrying too much about different things: 3 = Nearly every day Trouble relaxin = Nearly every day Being so restless that it is hard to sit still: 3 = Nearly every day Becoming easily annoyed or irritable: 3 = Nearly every day Feeling afraid as if something awful might happen: 3 = Nearly every day Total BI-7 score (0-4 normal; 5-9 mild; 10-14 moderate; 15-21 severe): 21 Source: Developed by Drs. Saran Pepper, Karuna Vogel, Mitchell Obrien and colleagues, with an educational mirela from [employer]. Physical exam (Primary Care) Vital Signs: Last Vital Signs Pulse 82 12/12/23 11:21 BP 110/70 12/12/23 11:21 Pulse Ox 95 12/12/23 11:21 Oxygen Delivery Method Room Air 12/12/23 11:21 BMI result Body Mass Index 18.6 Tobacco/Smoking Status: Tobacco use Status Tobacco use date assessed 12/12/23 12/12/23 11:31 Patient Tobacco Use Status Never used Tobacco 12/12/23 11:20 e-Cigarette/Vaping Use Never Used 12/12/23 11:20 Thrive Assessment: Date of Thrive Assessment Date Thrive assessed 10/17/23 12/12/23 11:20 Const General: cooperative and healthy appearing Nutritional Appearance: well nourished Orientation/consciousness: patient oriented x3 Limitations: no limitations HENMT Head: Yes normal to inspection Eyes General: appearance normal, both eyes and all related structures Neck Neck: Yes normal visual inspection Chest Chest palpation & inspection: normal palpation of entire chest wall Resp Effort & Inspection: normal respiratory effort Neuro General: patient oriented x3 Assessment and Plan Assessment & Plan (1) Migraine without aura: Code(s): G43.009 - Migraine without aura, not intractable, without status migrainosus Plan: Meloxicam has been discontinued. Sumatriptan has been added to the regimen. If patient continues to have frequent migraines requiring more than 15 pills of sumatriptan a month, I would begin prophylaxis for the prevention of migraine. Medications: New sumatriptan succinate take 1 tab at onset of headache; if no relief may repeat 1 tab after at least 2 hrs; max = 4 tabs/24 hr PO 14 tabs 0RF Discontinued meloxicam Discontinued Reason: Doctor's Order 15 mg PO DAILY 14 tabs 0RF Coding Level of Care Code Est Pt Level 4 (23458) Complex EM visit Add On G2211 Diagnoses Migraine without aura G43.009
[2023-12-12 11:21] VITALS: BP 110/70; PULSE 82; O2SAT 95; BMI 18.6
== END 2023-12-12 12:02 | disposition home or self-care (01) ==
PROVIDERS: PCP Internal Medicine; Visit Provider Internal Medicine
DX: G43.009 Migraine without aura, not intractable, without status migrainosus (principal)
CPT/HCPCS: 99214

== ENCOUNTER 2024-01-15 07:50 | Outpatient (REF) | payer BC, SELFPAY ==
[2024-01-15 16:35] LABS: Bacterial Vaginosis PCR POSITIVE (Negative); Candida Group PCR NOT DETECTED (Not Detect); Candida glab krusei PCR NOT DETECTED (Not Detect); Trichomonas vaginalis PCR NOT DETECTED (Not Detect)
[2024-01-15 17:00] LABS: CT PCR NOT DETECTED (Not Detect.); NG PCR NOT DETECTED (Not Detect.)
== END 2024-01-15 07:51 | disposition home or self-care (01) ==
LOC: HO.LAB 07:50
PROVIDERS: PCP Internal Medicine; Visit Provider Advanced Practice Midwife
DX: Z30.41 Encounter for surveillance of contraceptive pills (principal); N94.10 Unspecified dyspareunia; Z20.2 Contact with and (suspected) exposure to infections with a predominantly sexual mode of transmission
CPT/HCPCS: 0352U; 81025; 87491; 87591

== ENCOUNTER 2024-01-15 07:50 | Outpatient (AMB) | payer BC, SELFPAY ==
[2024-01-15 07:53] VITALS: BP 90/64; BMI 18.7
--- NOTE | 2024-01-15 07:53 | MHC.OFFVIS ---
Vital Signs 01/15/24 07:53 Height 5 ft 6 in Weight 116 lb BMI 18.7 BP 90/64 Intake Visit Reasons: pill check Allergies No Known Allergies Allergy (Verified 01/15/24 07:53) Is last menstrual period known: Yes Last menstrual period: 01/15/24 HPI Comments Details: Patient is here today for a pill check, she reports taking the pill within an hour range. Admits to having some unscheduled spotting for 2 days last month and has started to notice over the last 3 months that she is having pain with intimacy just before and after her cycle. She reports checking her cervix to see if it is tender before she commits to having intimacy. She denies any abnormal discharge or urinary symptoms. History of nausea, takes pantoprazole for her GI upset. She did a home test recently and reports it was negative. History of infertility in [facility]. Currently started her cycle today. FORMERLY [facility] Medical History Nabothian cyst Cyst of uterus Abnormal ultrasound Female infertility Pelvic pain Ovarian cyst Irregular menses History of anxiety Hx of migraine headaches Encounter to establish care (~07/05/21) Surgical History History of wisdom tooth extraction History of hernia surgery History of nasal surgery History of facial surgery Family History Mother Hernia Father High blood pressure Kidney stone Maternal Grandmother Diabetes mellitus Paternal Grandmother Diabetes mellitus Social History Housing: Apartment Alcohol intake: current Alcohol intake frequency: a few times a month Patient Tobacco Use Status: Never used Tobacco e-Cigarette/Vaping Use: Never Used Second Hand Smoke Exposure: No Substance Use Type: Marijuana service: No Current occupational status: employed 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 Sexual orientation: Straight/Heterosexual Gender identity: Female Cognitive needs: No Hearing needs: No Vision needs: Yes (glasses) Female Reproductive History Menstrual Age of Menarche: 13 Date of last menstrual period: 01/15/24 Review of Systems Const All systems reviewed & are unremarkable except as noted in HPI and below Physical Exam Vital Signs: Last Vital Signs BP 90/64 01/15/24 07:53 BMI result Body Mass Index 18.7 Const General: cooperative, healthy appearing and no acute distress Orientation/consciousness: patient oriented x3 GI Inspection: Yes normal to inspection Palpation (GI): Soft to palpation and Other GI palpation findings present (Nontender) Rectal Exam - Female: visual inspection normal General: Yes bladder normal to palpation External Female Exam: normal appearance of the urethra Speculum Exam - Vagina: normal appearance of the vagina, normal palpation, normal vaginal discharge and vaginal bleeding Speculum Exam - Cervix: normal appearance of the cervix and normal palpation Bimanual exam- vagina & uterus: normal bimanual exam, normal palpation, uterine size normal, bladder normal to palpation, normal palpation, uterine shape normal and non-tender Bimanual Exam- Adnexa, other: normal adnexae OB/external & speculum: vaginal bleeding Neuro General: patient oriented x3 Results AMB Test Urine AMB Test Urine Negative Last Edit by ROME Torres on 01/15/24 08:16 Results Reviewed Results Reviewed: Laboratory Last Values [facility]st Clinic Negative 01/15/24 08:15 Assessment & Plan Assessment & Plan (1) Oral contraceptive pill surveillance: Code(s): Z30.41 - Encounter for surveillance of contraceptive pills (2) Dyspareunia in female: Code(s): N94.10 - Unspecified dyspareunia Plan Discussed: Plan cultures GC chlamydia and BV panel. UPT is negative. Advised not to finger clean as she is prone to BV and to consider probiotic use to help restore vaginal silva. Discussed common causes of pelvic pain, may consider endometriosis, would need further evaluation to confirm, treatment presumptively unless planning future will discuss options further at her next follow up. Return to the office in 3 months will complete annual at that visit, report any increase in pain or other concerns sooner. Take control same time a day. If any missed or late pills use of a backup method is required. Refills sent in to pharmacy. All of her questions and concerns were addressed to the best of my ability and shared decision making. She is agreeable to the plan of care. This note is constructed using voice recognition software. While every effort has been made to ensure accuracy, transportation engineering technician errors may have been included. Orders: Orders AMB HCG Urine Test Today N94.10 - Unspecified dyspareunia Bacterial Vaginosis Panel Today N94.10 - Unspecified dyspareunia CT NG by PCR Today N94.10 - Unspecified dyspareunia Coding Level of Care Code Est Pt Level 3 (33607) Diagnoses Oral contraceptive pill surveillance Z30.41 Dyspareunia in female N94.10
== END 2024-01-15 08:28 | disposition home or self-care (01) ==
PROVIDERS: PCP Internal Medicine; Visit Provider Advanced Practice Midwife
DX: Z30.41 Encounter for surveillance of contraceptive pills (principal); N94.10 Unspecified dyspareunia
CPT/HCPCS: 99213

== ENCOUNTER 2024-01-15 08:15 | Outpatient (REF) | payer BC, SELFPAY | END 2024-01-15 08:16 | disposition home or self-care (01) | LOC: HO.LNP 08:15 | PROVIDERS: Visit Provider Advanced Practice Midwife | DX: Z13.89 Encounter for screening for other disorder (principal) ==

== ENCOUNTER 2024-01-23 08:32 | Outpatient (AMB) | payer BC, SELFPAY ==
[2024-01-23 08:47] VITALS: BP 96/78; PULSE 56; O2SAT 99; BMI 18.4
--- NOTE | 2024-01-23 08:47 | MHC.PC.OV ---
Vital Signs 01/23/24 08:47 Height 5 ft 6 in Weight 114 lb 4 oz BMI 18.4 BP 96/78 Blood Pressure Location Lt brachial Position Sitting Pulse 56 Pulse Source Pulse Oximeter Pulse Oximetry (%) 99 Oxygen Delivery Method Room Air Intake Visit Reasons: 1mth f/u Prior Authorization Technician Required: No Accompanied by: Self / Same As Patient Allergies No Known Allergies Allergy (Verified 01/23/24 09:45) Medication List - Last Reconciled 01/23/24 by Jorge Luis Velasco MD metronidazole 500 mg PO BID 7 days norethindrone (contraceptive) (Aditi) 0.35 mg PO DAILY 90 days pantoprazole 40 mg PO DAILY sumatriptan succinate take 1 tab at onset of headache; if no relief may repeat 1 tab after at least 2 hrs; max = 4 tabs/24 hr PO Tobacco use date assessed: 01/23/24 Dental Screening Dental Screen Date: 01/23/24 Did you have a dental visit in the last 12 months?: Yes Did you have a dental problem in the last 6 months where you did not have access to dental care?: No Was dental information given to patient?: Patient has dentist HPI 1mth f/u HPI Details 23-year-old female returns for a one-month follow-up. Sumatriptan has been helping her. She has to take 2 pills per migraine episode. She gets 1 episode a week. She is able to distinguish normal headaches from migraine headaches. Tolerating the pantoprazole and the vitamins. Patient has been on metronidazole for a vaginal infection. [facility] Medical History (Updated 01/23/24 @ 09:49 by Jorge Luis Velasco MD) Migraine headache with aura Nabothian cyst Cyst of uterus Abnormal ultrasound Female infertility Pelvic pain Ovarian cyst Irregular menses History of anxiety Encounter to establish care (~07/05/21) Surgical History History of wisdom tooth extraction History of hernia surgery History of nasal surgery History of facial surgery Family History Mother Hernia Father High blood pressure Kidney stone Maternal Grandmother Diabetes mellitus Paternal Grandmother Diabetes mellitus Social History (Reviewed 01/15/24 @ 08:34 by JACQUE Ruiz Housing: Apartment Alcohol intake: current Alcohol intake frequency: a few times a month Patient Tobacco Use Status: Never used Tobacco e-Cigarette/Vaping Use: Never Used Second Hand Smoke Exposure: No Substance Use Type: Marijuana service: No Current occupational status: employed 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 1. Little interest or pleasure in doing things: not at all 2. Feeling down, depressed, or hopeless: not at all 3. Trouble falling or staying asleep, or sleeping too much: not at all 4. Feeling tired or having little energy: not at all 5. Poor appetite or overeating: not at all 6. Feeling bad about yourself - or that you are a failure or have let yourself or your family down: not at all 7. Trouble concentrating on things, such as reading the newspaper or watching television: not at all 8. Moving or speaking so slowly that other people could have noticed. Or the opposite - being so fidgety or restless that you have been moving around a lot more than usual: not at all 9. Thoughts that you would be better off or of hurting yourself in some way: not at all Total score: 0 Depression Screening Interpretation: Negative Depression Screening Done: Yes Source: Developed by Drs. Saran Pepper, Karuna Vogel, Mitchell Obrien and colleagues, with an educational mirela from [employer]. Thrive Questionnaire Date Thrive assessed: 01/23/24 I am a: Patient What is your living situation today?: I have a steady place to live Within the past 12 months, did the food you bought not last and you didn't have the money to get more?: Never true Within the past 12 months, did you worry whether your food would run out before you got money to buy more?: Never true Do you have trouble paying for medicines?: No Do you have trouble getting transportation to medical appointments?: No Do you have trouble paying your heating and electricity bill?: No Do you have trouble taking care of your child, family member or friend?: No Do you have trouble with day-to-day activities such as bathing, preparing meals, shopping, managing finances, etc.?: No Are you currently unemployed and looking for a job?: No Are you interested in more education?: No Please select the resources that you would like help with: None Currently or been in a relationship where the following occur: No concerns reported THRIVE Score: 0 AUDIT C Alcohol Use Questionnaire (AUDIT-C) 1. How often do you have a drink containing alcohol?: Monthly or less 2. How many drinks containing alcohol do you have on a typical day when you are drinking?: 1 or 2 Total Score: 1 BI-7 AMB Questionnaire BI-7 Date BI - 7 assessed: 01/23/24 Feeling nervous, anxious, or on edge: 3 = Nearly every day Not being able to stop or control worryin = Nearly every day Worrying too much about different things: 3 = Nearly every day Trouble relaxin = Nearly every day Being so restless that it is hard to sit still: 3 = Nearly every day Becoming easily annoyed or irritable: 3 = Nearly every day Feeling afraid as if something awful might happen: 3 = Nearly every day Total BI-7 score (0-4 normal; 5-9 mild; 10-14 moderate; 15-21 severe): 21 Source: Developed by Drs. Saran Pepper, Karuna Vogel, Mitchell Obrien and colleagues, with an educational mirela from [employer]. Physical exam (Primary Care) Vital Signs: Last Vital Signs Pulse 56 01/23/24 08:47 BP 96/78 01/23/24 08:47 Pulse Ox 99 01/23/24 08:47 Oxygen Delivery Method Room Air 01/23/24 08:47 BMI result Body Mass Index 18.4 Tobacco/Smoking Status: Tobacco use Status Tobacco use date assessed 01/23/24 01/23/24 08:50 Patient Tobacco Use Status Never used Tobacco 01/23/24 08:50 e-Cigarette/Vaping Use Never Used 01/23/24 08:50 PHQ-9: PHQ-9 Score PHQ-9: Total score 0 01/23/24 08:50 Depression Screening Interpretation: Negative Thrive Assessment: Date of Thrive Assessment Date Thrive assessed 01/23/24 01/23/24 08:50 Currently or been in a relationship where the following occur: No concerns reported Const Other: Blood pressure, temperature and heart rate reviewed. Assessment and Plan Assessment & Plan (1) Migraine headache with aura: Code(s): G43.109 - Migraine with aura, not intractable, without status migrainosus Plan: Continue sumatriptan in the current regimen. To be used intermittently and at the onset of headache. Should her frequency of migraine headaches increase, prophylactic treatment will be considered. Medications: Refilled sumatriptan succinate take 1 tab at onset of headache; if no relief may repeat 1 tab after at least 2 hrs; max = 4 tabs/24 hr PO 30 tabs 1RF Coding Level of Care Code Est Pt Level 3 (09205) Complex EM visit Add On G2211 Diagnoses Migraine headache with aura G43.109
== END 2024-01-23 09:28 | disposition home or self-care (01) ==
PROVIDERS: PCP Internal Medicine; Visit Provider Internal Medicine
DX: G43.109 Migraine with aura, not intractable, without status migrainosus (principal)
CPT/HCPCS: 99213

== ENCOUNTER 2024-04-16 09:10 | Outpatient (AMB) | payer BC, SELFPAY ==
--- NOTE | 2024-04-16 09:14 | A.OFFVIS_ITS ---
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 Doing well with concerns: acne breakouts w/Aditi. No AUB, has cycles q 39-41. She reports having some discomfort in the pelvic area after she had her last cycle lasting for about a day felt as really strong cramps. Currently is sexually active. She denies vaginal itching and irritation. Using a probiotic and has been responding well with the postcoital bleeding resolved and chronic vaginitis is decreased. STI screening offered; she accepts. She tries to eat healthy and stays active with exercise. She denies any contraindications to control such as: history of DVT or pulmonary emboli, high blood pressure, liver disease, thrombolic disorders, Lupus, +MAT, breast cancer, or smoking. History of migraine with aura. Denies family history of breast, ovarian or colon cancer. Last pap smear 09/2023, negative. [facility] Medical History (Updated 04/16/24 @ 10:03 by Salud Otero LPN) Migraine headache with aura Nabothian cyst Cyst of uterus Abnormal ultrasound Female infertility Pelvic pain Ovarian cyst Irregular menses History of anxiety Encounter to establish care (~07/05/21) Surgical History History of wisdom tooth extraction History of hernia surgery History of nasal surgery History of facial surgery Family History Mother Hernia Father High blood pressure Kidney stone Maternal Grandmother Diabetes mellitus Paternal Grandmother Diabetes mellitus Social History Housing: Apartment Alcohol intake: current Alcohol intake frequency: a few times a month Patient Tobacco Use Status: Never used Tobacco e-Cigarette/Vaping Use: Never Used Second Hand Smoke Exposure: No Substance Use Type: Marijuana service: No Current occupational status: employed 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 Sexual orientation: Straight/Heterosexual Gender identity: Female Cognitive needs: No Hearing needs: No Vision needs: Yes (glasses) Female Reproductive History Menstrual Age of Menarche: 13 Duration of menses: 6-7 days Date of last menstrual period: 04/02/24 control method: pills Total pregnancies: 1 Review of Systems Const All systems reviewed & are unremarkable except as noted in HPI and below Reports as per HPI Eyes Reports no additional complaints ENT Reports no additional complaints Card Reports no additional complaints Resp Reports no additional complaints GI Reports as per HPI and Reports no additional complaints Reports as per HPI Musc Reports no additional complaints Skin/Breast Reports as per HPI Neuro Reports no additional complaints Psych Reports no additional complaints Endo Reports no additional complaints Christiano/Lymph Reports no additional complaints Aller/Immun Reports no additional complaints Physical Exam Vital Signs: Last Vital Signs BP 102/68 04/16/24 09:17 Const General: cooperative, healthy appearing, no acute distress, well developed and alert Orientation/consciousness: patient oriented x3 HEENT Head: Yes normal to inspection Eyes General: appearance normal, both eyes and all related structures Neck Neck: Yes normal visual inspection Thyroid: Thyroid normal Chest Chest palpation & inspection: normal inspection of the chest and other (no puckering, dimpling, peau de orange, retraction, discharge, masses) Breast/axilla inspection: normal inspection of the breasts Breast/axilla palpation: normal palpation of the breasts Resp Effort & Inspection: normal respiratory effort GI Inspection: Yes normal to inspection Palpation (GI): Soft to palpation Rectal Exam - Female: deferred General: Yes bladder normal to palpation External Female Exam: normal external appearance and normal appearance of the urethra Speculum Exam - Vagina: normal appearance of the vagina, normal palpation and normal vaginal discharge Speculum Exam - Cervix: normal appearance of the cervix and normal palpation Bimanual exam- vagina & uterus: normal bimanual exam, normal palpation, uterine size normal, bladder normal to palpation, normal palpation and non-tender Bimanual Exam- Adnexa, other: no masses Skin General skin exam: no rashes or lesions noted Rashes: no rashes Neuro General: patient oriented x3 Cognition (Neuro): normal cognition Extrem General: Yes normal to inspection Psych Attitude: cooperative Thought process: Normal thought process present Assessment & Plan Assessment & Plan (1) Encounter for well woman exam with routine gynecological exam: Code(s): Z01.419 - Encounter for gynecological examination (general) (routine) without abnormal findings Category: Medical (2) Possible exposure to STD: Code(s): Z20.2 - Contact with and (suspected) exposure to infections with a predominantly sexual mode of transmission Plan Discussed: Current recommendations for pap smears per ASCCP guidelines. Breast awareness and periodic breast exams. Maintain a healthy lifestyle including a well balanced diet and routine e xercise. Continue with [place] as directed. Observe for any breakthrough bleeding, report to the office if any concerns. Other options including the implant, Kyleena IUD reviewed today-she is currently happy with the products she is using. She thinks she may take a break in the next year just to see if her skin improves in that she will cycle on her own normally, plans to use condoms at that time. Use condoms for STI and prevention. Patient verbalizes understanding and agrees to the plan of care. She was given opportunity to ask questions and all questions were answered to the best of my ability. 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 This note is constructed using voice recognition software. While every effort has been made to ensure accuracy, clinical documentation improvement specialist errors may have been included. Orders: Orders CT NG by PCR Today Z01.419 - Encounter for gynecological examination (general) (routine) without abnormal findings, Z20.2 - Contact with and (suspected) exposure to infections with a predominantly sexual mode of transmission Bacterial Vaginosis Panel Today Z01.419 - Encounter for gynecological examination (general) (routine) without abnormal findings, Z20.2 - Contact with and (suspected) exposure to infections with a predominantly sexual mode of transmission Medications: Refilled norethindrone (contraceptive) (Aditi) 0.35 mg PO DAILY 90 days 90 tabs 4RF Coding Level of Care Code Est Pt Prev Care 18-39y(27420) Diagnoses Encounter for well woman exam with routine gynecological exam Z01.419 Possible exposure to STD Z20.2
[2024-04-16 09:17] VITALS: BP 102/68
== END 2024-04-16 10:05 | disposition home or self-care (01) ==
LOC: HO.HWS 09:10
PROVIDERS: PCP Internal Medicine; Visit Provider Advanced Practice Midwife
DX: Z01.419 Encounter for gynecological examination (general) (routine) without abnormal findings (principal); Z20.2 Contact with and (suspected) exposure to infections with a predominantly sexual mode of transmission
CPT/HCPCS: 99395

== ENCOUNTER 2024-04-16 09:10 | Outpatient (REF) | payer BC, SELFPAY ==
[2024-04-17 07:43] LABS: CT PCR NOT DETECTED (Not Detect.); NG PCR NOT DETECTED (Not Detect.)
[2024-04-17 11:42] LABS: Bacterial Vaginosis PCR POSITIVE (Negative); Candida Group PCR DETECTED (Not Detect); Candida glab krusei PCR NOT DETECTED (Not Detect); Trichomonas vaginalis PCR NOT DETECTED (Not Detect)
== END 2024-04-16 09:11 | disposition home or self-care (01) ==
LOC: HO.LNP 09:10
PROVIDERS: PCP Internal Medicine; Visit Provider Advanced Practice Midwife
DX: Z01.419 Encounter for gynecological examination (general) (routine) without abnormal findings (principal); Z20.2 Contact with and (suspected) exposure to infections with a predominantly sexual mode of transmission
CPT/HCPCS: 0352U; 87491; 87591

== ENCOUNTER → 2024-07-25 14:54 | Outpatient (BNVA) | payer BC, SELFPAY | PROVIDERS: PCP Internal Medicine; Visit Provider Physician Assistant Medical ==

== ENCOUNTER 2024-12-18 15:15 | Outpatient (AMB) | payer BC, SELFPAY ==
--- NOTE | 2024-12-18 15:35 | A.OFFPC_ITS ---
Vital Signs 12/18/24 15:36 Height 5 ft 6 in Weight 112 lb 6 oz BMI 18.1 BP 128/78 Blood Pressure Location Lt brachial Position Sitting Pulse 71 Pulse Source Pulse Oximeter Temp 97.3 F Temp Source Temporal Artery Scan Pulse Oximetry (%) 98 Oxygen Delivery Method Room Air Intake Visit Reasons: annual exam Intake Note: Patient is here today for a physical. 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 [facility] Medical History Migraine headache with aura Nabothian cyst Cyst of uterus Abnormal ultrasound Female infertility Pelvic pain Ovarian cyst Irregular menses History of anxiety Encounter to establish care (~07/05/21) Surgical History History of wisdom tooth extraction History of hernia surgery History of nasal surgery History of facial surgery Family History Mother Hernia Father High blood pressure Kidney stone Maternal Grandmother Diabetes mellitus Paternal Grandmother Diabetes mellitus Social History Housing: Apartment Alcohol intake: current Alcohol intake frequency: a few times a month Patient Tobacco Use Status: Never used Tobacco e-Cigarette/Vaping Use: Never Used Second Hand Smoke Exposure: No Substance Use Type: Marijuana service: No Current occupational status: employed 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 1. Little interest or pleasure in doing things: not at all 2. Feeling down, depressed, or hopeless: not at all 3. Trouble falling or staying asleep, or sleeping too much: not at all 4. Feeling tired or having little energy: not at all 5. Poor appetite or overeating: not at all 6. Feeling bad about yourself - or that you are a failure or have let yourself or your family down: not at all 7. Trouble concentrating on things, such as reading the newspaper or watching television: not at all 8. Moving or speaking so slowly that other people could have noticed. Or the opposite - being so fidgety or restless that you have been moving around a lot more than usual: not at all 9. Thoughts that you would be better off or of hurting yourself in some way: not at all Total score: 0 Depression Screening Interpretation: Negative Depression Screening Done: Yes Source: Developed by Drs. Saran Pepper, Karuna Vogel, Mitchell Obrien and colleagues, with an educational mirela from [employer]. Thrive Questionnaire Date Thrive assessed: 12/18/24 I am a: Patient What is your living situation today?: I have a steady place to live Within the past 12 months, did the food you bought not last and you didn't have the money to get more?: Never true Within the past 12 months, did you worry whether your food would run out before you got money to buy more?: Sometimes True Do you have trouble paying for medicines?: No Do you have trouble getting transportation to medical appointments?: No Do you have trouble paying your heating and electricity bill?: No Do you have trouble taking care of your child, family member or friend?: No Do you have trouble with day-to-day activities such as bathing, preparing meals, shopping, managing finances, etc.?: No Are you currently unemployed and looking for a job?: No Are you interested in more education?: No Please select the resources that you would like help with: None Currently or been in a relationship where the following occur: I choose not to answer THRIVE Score: 1 AUDIT C Alcohol Use Questionnaire (AUDIT-C) 1. How often do you have a drink containing alcohol?: Never 2. How many drinks containing alcohol do you have on a typical day when you are drinking?: 1 or 2 3. How often do you have six or more drinks on one occasion?: Never Total Score: 0 BI-7 AMB Questionnaire BI-7 Date BI - 7 assessed: 12/18/24 Feeling nervous, anxious, or on edge: 3 = Nearly every day Not being able to stop or control worryin = Nearly every day Worrying too much about different things: 3 = Nearly every day Trouble relaxin = Nearly every day Being so restless that it is hard to sit still: 3 = Nearly every day Becoming easily annoyed or irritable: 3 = Nearly every day Feeling afraid as if something awful might happen: 3 = Nearly every day Total BI-7 score (0-4 normal; 5-9 mild; 10-14 moderate; 15-21 severe): 21 Source: Developed by Drs. Saran Pepper, Karuna Vogel, Mitchell Obrien and colleagues, with an educational mirela from [employer]. Physical exam (Primary Care) Vital Signs: Last Vital Signs Temp 97.3 F 12/18/24 15:36 Pulse 71 12/18/24 15:36 BP 128/78 12/18/24 15:36 Pulse Ox 98 12/18/24 15:36 Oxygen Delivery Method Room Air 12/18/24 15:36 BMI result Body Mass Index 18.1 Tobacco/Smoking Status: Tobacco use Status Tobacco use date assessed 12/18/24 12/18/24 15:54 Patient Tobacco Use Status Never used Tobacco 12/18/24 15:54 e-Cigarette/Vaping Use Never Used 12/18/24 15:54 PHQ-9: PHQ-9 Score PHQ-9: Total score 0 12/18/24 15:54 Depression Screening Interpretation: Negative Thrive Assessment: Date of Thrive Assessment Date Thrive assessed 12/18/24 12/18/24 15:54 Currently or been in a relationship where the following occur: I choose not to answer Coding Level of Care Code Est Pt Prev Care 18-39y(85261) Diagnoses Annual physical exam Z00.00 Assessment & Plan Assessment & Plan (1) Annual physical exam: Code(s): Z00.00 - Encounter for general adult medical examination without abnormal findings Plan: Blood work ordered. Will call with results.
[2024-12-18 15:36] VITALS: BP 128/78; PULSE 71; TEMP 36.3; O2SAT 98; BMI 18.1
== END 2024-12-18 16:22 | disposition home or self-care (01) ==
LOC: HO.HMCH 15:16
PROVIDERS: PCP Internal Medicine; Visit Provider Internal Medicine
DX: Z00.00 Encounter for general adult medical examination without abnormal findings (principal)

== ENCOUNTER 2024-12-25 09:26 | Outpatient (REF) | payer BC, SELFPAY ==
[2024-12-25 09:41] LABS: MANUAL DIFF FLAG NO
[2024-12-25 10:24] LABS: Hematocrit 37.2 % (37.0-47.0); Hemoglobin 12.6 g/dl (12.0-16.0); Imm Gran Abs Auto 0.02 X10*3/uL (0.00-0.03); Imm Gran Pct Auto 0.4 % (0.0-0.4); Lymphocytes Absolute Auto 1.9 X10*3/uL (1.2-4.9); Mean Corpuscular HGB Conc 33.9 g/dl (31.0-35.0); Mean Corpuscular Hemoglobin 27.8 pg (27.0-33.0); Mean Corpuscular Volume 81.9 fL (80.0-98.0); NRBC Abs Auto 0.000 X10*3/uL (0.0-0.012); NRBC Pct Auto 0.0 /100WBC (0.0-0.2); Platelet Count 225 X10*3/uL (160-400); Red Blood Count 4.54 X10*6/uL (4.20-5.50); White Blood Count 5.2 X10*3/uL (4.8-10.8)
[2024-12-25 10:25] LABS: Hemoglobin A1C 98.9165 umol/L; Total Hemoglobin (HGBA1C) 3364.1098 umol/L
[2024-12-25 11:09] LABS: Alanine Aminotransferase 16 U/L (0-31); Albumin Level 4.5 g/dL (3.5-5.0); Alkaline Phosphatase 38 U/L (39-117); Anion Gap 10 (12-20); Aspartate Amino Transferase 20 U/L (5-31); Blood Urea Nitrogen 12 mg/dL (9-16); Calcium 8.7 mg/dL (8.4-10.2); Carbon Dioxide 25 mmol/L (22-29); Chloride 109 mmol/L (96-108); Cholesterol 158 mg/dL (<200); Estimated Glomerular Filt Rate > 60; HDL Cholesterol 52 mg/dL (>40); Magnesium 2.2 mg/dL (1.6-2.6); Potassium 4.0 mmol/L (3.3-5.1); Sodium 140 mmol/L (135-145); Total Protein 7.2 g/dL (6.5-8.0); Triglycerides 40 mg/dL (<150)
[2024-12-25 11:29] LABS: Folate 12.0 ng/mL (> or = 4.0); Vitamin B12 580 pg/mL (200-900)
== END 2024-12-25 09:27 | disposition home or self-care (01) ==
LOC: HO.LAB 09:26
PROVIDERS: PCP Internal Medicine; Visit Provider Physician Assistant Medical
DX: Z00.00 Encounter for general adult medical examination without abnormal findings (principal)
CPT/HCPCS: 36415; 80053; 80061; 80076; 82248; 82306; 82607; 82746; 83036; 83735; 84425; 84443; 85025; 86140